=== PATIENT | female | born 1985 | race Caucasian/White ===

== ENCOUNTER → 2017-05-09 | Outpatient (CLI) | payer OTHER ==
--- NOTE | 2017-05-09 15:09 | CT ---
EXAMINATION TYPE: CT abdomen pelvis w con DATE OF EXAM: 05/09/2017 COMPARISON: Prior CT abdomen pelvis 12/04/2011 HISTORY: back pain right upper quadrant pain, R 10.11, epigastric pain, R 10.13 CT DLP: 334.5 mGycm Automated exposure control for dose reduction was used. TECHNIQUE: Helical acquisition of images from the lung bases through the pelvis have been completed. CONTRAST: Performed with Oral Contrast and with IV Contrast, patient injected with 100 mL of Omnipaque 300. FINDINGS: Gastric antrum show some wall thickening. LUNG BASES: Subpleural nodularity is present as on prior exam in the left lower chest. No pleural or pericardial effusion. AORTA: No significant abnormality is appreciated. LIVER/GB: No significant abnormality is appreciated. PANCREAS: No significant abnormality is seen. SPLEEN: No significant abnormality is seen. ADRENALS: No significant abnormality is seen. KIDNEYS: No significant abnormality is seen. REPRODUCTIVE ORGANS: No significant abnormality is seen BOWEL: No significant abnormality is seen. FREE AIR: No Free Air visible. ASCITES: None visible. PELVIC ADENOPATHY: None visualized. RETROPERITONEAL ADENOPATHY: No Retroperitoneal Adenopathy visible. URINARY BLADDER: No significant abnormality is seen. OSSEOUS STRUCTURES: There is a spinal curvature, scoliosis convex left. IMPRESSION: Correlate to exclude gastritis. Scoliosis.
== END | disposition home or self-care (01) ==
LOC: RADCTMAIN 13:28
PROVIDERS: ATTEND Family Medicine
DX: R10.13 Epigastric pain (principal); M54.6 Pain in thoracic spine; Z87.42 Personal history of other diseases of the female genital tract
CPT/HCPCS: 74177; Q9967

== ENCOUNTER → 2017-05-17 | Outpatient (CLI) | payer OTHER ==
--- NOTE | 2017-05-21 07:11 | XR ---
EXAMINATION TYPE: XR thoracic spine 2V , 2 VIEWS DATE OF EXAM ORDERED: 05/17/2017 HISTORY: [id number] thor back pain. COMPARISON: None. FINDINGS: There is an S-shaped scoliosis convex to the left in the upper thoracic region and to the right at the thoracolumbar junction. Crandall's angle subtended 26 degrees in the upper thoracic region a nd 25 degrees at the thoracolumbar junction. No segmentation defects are seen. IMPRESSION: IDIOPATHIC SCOLIOSIS.
== END ==
LOC: RADXRYALE 15:22
PROVIDERS: ATTEND Physician Assistant Medical
DX: M41.24 Other idiopathic scoliosis, thoracic region (principal)
CPT/HCPCS: 72070

== ENCOUNTER → 2017-05-22 | Outpatient (CLI) | payer OTHER ==
--- NOTE | 2017-05-23 07:21 | NM ---
EXAMINATION TYPE: NM hepatobiliary w EF DATE OF EXAM: 05/22/2017 COMPARISON: NONE HISTORY: Epigastric pain. TECHNIQUE: After the intravenous administration of 5.42 mCi Tc 99m Mebrofenin hepatobiliary scintigra phy is performed. Immediate images post injection. FINDINGS: There is satisfactory initial accumulation of tracer by the liver. The gallbladder is visualized wit hin 2 minutes. The small bowel activity is noted within 18 minutes. At one hour 8 ounces of oral en sure plus is given to mimic CCK and gallbladder ejection fraction is calculated at 40 %, in the david l range. Therefore there is no scintigraphic evidence of cystic or common bile duct obstruction to s uggest acute cholecystitis or gallbladder dyskinesia. IMPRESSION: NORMAL NUCLEAR MEDICINE HEPATOBILIARY SCAN WITH EJECTION FRACTION CALCULATION.
== END ==
LOC: RADNMMAIN 14:47
PROVIDERS: ATTEND Family Medicine
DX: R10.13 Epigastric pain (principal); R10.11 Right upper quadrant pain; M54.6 Pain in thoracic spine
CPT/HCPCS: 78226; A9537